=== PATIENT | female | born 1940 | race Caucasian/White ===

== ENCOUNTER → 2020-12-28 | Outpatient (CLI) | payer MEDICARE | LOC: M WHC 07:36 | DX: Z12.31 Encounter for screening mammogram for malignant neoplasm of breast (principal) ==

== ENCOUNTER → 2021-10-27 | Outpatient (REF) | payer MEDICARE ==
[2021-11-01 16:09] LABS: FATS NEUTRAL Normal (.); FATS TOTAL Normal (.)
== END ==
LOC: M LAB REF 11:36
PROVIDERS: ATTEND Surgery
DX: R19.7 Diarrhea, unspecified (principal)

== ENCOUNTER 2022-11-28 13:00 | Day surgery (SDC) | payer MEDICARE ==
[~2022-11-28] VITALS: Ht 160 cm; Wt 54.8 kg
[~2022-11-28 13:00] MED LIST: APRI0.37 PO; FAMO40TA3 PO; MELO15TA28 PO; NS 1,000 ML IV ONE; PANT40TA29 PO; PROBCAP14 PO; SYNT88TA2 PO; VENL150C43 PO; VITMTA PO
[2022-11-28] MEDS ORDERED: propofoL 200 MG/20 ML VIAL As Ordered ONE (14:24)
[2022-11-28 14:35] VITALS: TEMP 96.6
[2022-11-28 14:55] VITALS: BP 136/73; O2SAT 100
== END 2022-11-28 15:06 | disposition home or self-care (01) ==
LOC: M OPP 13:00
PROVIDERS: ATTEND Internal Medicine Gastroenterology
DX: K57.10 Diverticulosis of small intestine without perforation or abscess without bleeding (principal); K31.89 Other diseases of stomach and duodenum